=== PATIENT | male | born 1985 ===

== ENCOUNTER 2019-05-25 06:17 | Emergency (ER) | payer SELFPAY ==
[~2019-05-25] VITALS: Ht 182.9 cm; Wt 90.9 kg
[2019-05-25 06:47] VITALS: BP 118/73
[2019-05-25] MEDS ORDERED: MIRT15 PO (06:57)
== END 2019-05-25 08:10 | disposition left against medical advice (07) ==
LOC: EMS 06:18
DX: F41.9 Anxiety disorder, unspecified (principal); Z53.21 Procedure and treatment not carried out due to patient leaving prior to being seen by health care provider